=== PATIENT | male | born 1995 | race Caucasian/White ===

== ENCOUNTER 2018-08-08 01:40 | Emergency (ER) | payer OTHER, BC ==
[2018-08-08] MEDS ORDERED: Sodium Chloride 0.9% 10 ML Syringe FLUSH PRN (02:10)
[2018-08-08] MEDS ORDERED: Ondansetron 4 MG/2 ML SDV IVPUSH ONE (02:11)
--- NOTE | 2018-08-08 02:15 | EDM.PDOC ---
ED HPI GENERAL MEDICAL PROBLEM - General Chief Complaint: Diabetic Complaint Stated Complaint: VOMITING Time Seen by Provider: 08/08/18 02:00 Source of Information: Reports: Patient, Family, Old Records History Limitations: Reports: No Limitations - History of Present Illness INITIAL COMMENTS - FREE TEXT/NARRATIVE: Roldan comes into [facility] ED with nausea since dinnertime, and subsequent vomiting since midnight every 10-15 minutes. He is a Type I DM with insulin pump, BSs running in the 80s-90s. He golfed today, and believes he may not have had enough fluids consumed. There is no headache, lt headiness, abdominal pain or back pain. He has tried no meds. Middle Abdomen Pain Score (Numeric/FACES): 5 - Related Data Allergies Allergy/AdvReac Type Severity Reaction Status Date / Time No Known Allergies Allergy Verified 08/08/18 01:52 Home Meds: Home Meds Escitalopram [Lexapro] 10 mg PO DAILY 11/30/17 [History] Insulin Lispro [HumaLOG] 1 unit SQ ACBED 11/30/17 [History] traZODone 50 mg PO BEDTIME PRN 11/30/17 [History] Past Medical History Psychiatric History: Reports: Anxiety, Depression Endocrine/Metabolic History: Reports: Diabetes, Type I Social & Family History - Family History Family Medical History: Noncontributory - Caffeine Use Caffeine Use: Reports: Soda ED ROS GENERAL - Review of Systems Review Of Systems: ROS reveals no pertinent complaints other than HPI. ED EXAM, GENERAL - Physical Exam Exam: See Below Exam Limited By: No Limitations General Appearance: Alert, WD/WN, Moderate Distress Eye Exam: Bilateral Eye: EOMI, Normal Inspection, PERRL Ears: Normal External Exam Nose: Normal Inspection Throat/Mouth: Normal Inspection, Normal Lips, Normal Teeth, Normal Gums, Normal Oropharynx, Normal Voice, No Airway Compromise Head: Normocephalic Neck: Normal Inspection, Supple, Non-Tender Respiratory/Chest: Lungs Clear, Normal Breath Sounds Cardiovascular: Regular Rate, Rhythm, No Murmur GI/Abdominal: Normal Bowel Sounds, Soft, Non-Tender, No Organomegaly, No Distention, No Mass (Male) Exam: Deferred Rectal (Males) Exam: Deferred Back Exam: Normal Inspection, Full Range of Motion Extremities: Normal Inspection Neurological: Alert, Oriented, CN II-XII Intact, Normal Cognition, Normal Gait, No Motor/Sensory Deficits Psychiatric: Normal Affect, Normal Mood Skin Exam: Warm, Dry, Intact, Normal Color, No Rash Lymphatic: No Adenopathy Course - Vital Signs Text/Narrative:: Following assessment, I started an IV in RUE, and administered 2L NS and 2L D5LR pending results of lab work, in addition to Zofran 8mg IV and Reglan 10 mg IV for nausea. There was 2 additional emesis during ED visit, and diarrhea x 1. He subsequently voided after 3 hrs, noting ketones small. Last Recorded V/S: Last Vital Signs Temp 36.8 C 08/08/18 01:40 Pulse 96 08/08/18 01:40 Resp 17 08/08/18 01:40 BP 118/81 08/08/18 01:40 Pulse Ox 100 08/08/18 01:40 - Orders/Labs/Meds Orders: Active Orders 24 hr Category Date Time Status Dextrose 5%-Lactated Ringers 1,000 ml Med 08/08/18 04:45 Active IV ASDIRECTED Dextrose 5%-Lactated Ringers 1,000 ml Med 08/08/18 06:15 Active IV ASDIRECTED Sodium Chloride 0.9% [Normal Saline] 2,000 ml Med 08/08/18 02:15 Active IV ASDIRECTED Sodium Chloride 0.9% [Saline Flush] Med 08/08/18 02:10 Active 10 ml FLUSH ASDIRECTED PRN Peripheral IV Insertion Adult [OM.PC] Routine Oth 08/08/18 02:10 Ordered Medication Orders Sodium Chloride (Normal Saline) 2,000 mls @ 999 mls/hr IV ASDIRECTED MIKE Last Admin: 08/08/18 03:30 Dose: 999 mls/hr Infusion: 08/08/18 03:30 Dose: 999 mls/hr Admin: 08/08/18 02:27 Dose: 999 mls/hr Dextrose/Lactated Ringer's (Dextrose 5%-Lactated Ringers) 1,000 mls @ 999 mls/ hr IV ASDIRECTED MIKE Last Admin: 08/08/18 04:41 Dose: 999 mls/hr Dextrose/Lactated Ringer's (Dextrose 5%-Lactated Ringers) 1,000 mls @ 999 mls/ hr IV ASDIRECTED MIKE Last Admin: 08/08/18 06:10 Dose: 999 mls/hr Sodium Chloride (Saline Flush) 10 ml FLUSH ASDIRECTED PRN PRN Reason: Keep Vein Open Last Admin: 08/08/18 02:27 Dose: 10 ml Labs: Laboratory Tests 08/08/18 08/08/18 08/08/18 Range/Units 02:15 02:15 05:45 WBC 11.7 (4.5-12.0) X10-3/uL RBC 5.09 (4.30-5.75) x10(6)uL Hgb 15.1 (13.5-17.8) g/dL Hct 43.6 (30.0-51.3) % MCV 85.7 (80-96) fL MCH 29.7 (27.7-33.6) pg MCHC 34.6 (32.2-35.4) g/dL RDW 12.2 (11.5-15.5) % Plt Count 218 (125-369) X10(3)uL MPV 9.3 (7.4-10.4) fL Neut % (Auto) 88.3 H (46-82) % Lymph % (Auto) 4.9 L (13-37) % [place] % (Auto) 5.3 (4-12) % Eos % (Auto) 0 L (1.0-5.0) % Baso % (Auto) 1 (0-2) % Neut # (Auto) 10.3 H (1.6-8.3) # Lymph # (Auto) 0.6 (0.6-5.0) # [place] # (Auto) 0.6 (0.0-1.3) # Eos # (Auto) 0.0 (0.0-0.8) # Baso # (Auto) 0.2 (0.0-0.2) # Sodium 143 D (135-145) mmol/L Potassium 4.1 (3.5-5.3) mmol/L Chloride 105 D (100-110) mmol/L Carbon Dioxide 27 (21-32) mmol/L BUN 19 H (7-18) mg/dL Creatinine 1.3 (0.70-1.30) mg/dL Est Cr Clr Drug Dosing 96.17 mL/min Estimated GFR (MDRD) > 60 (>60) BUN/Creatinine Ratio 14.6 (9-20) Glucose 102 D (80-116) mg/dL Calcium 9.4 (8.6-10.2) mg/dL Urine Color Yellow (YELLOW) Urine Appearance Clear (CLEAR) Urine pH 5.0 (5.0-6.5) Ur Specific [place] 1.015 (1.010-1.025) Urine Protein Negative (NEGATIVE) mg/dL Urine Glucose (UA) >1000 H (NORMAL) mg/dL Urine Ketones 50 H (NEGATIVE) mg/dL Urine Occult Blood Negative (NEGATIVE) Urine Nitrite Negative (NEGATIVE) Urine Bilirubin Negative (NEGATIVE) Urine Urobilinogen Normal (NEGATIVE) mg/dL Ur Leukocyte Esterase Negative (NEGATIVE) Urine RBC Not seen (0-5) Urine WBC 0-5 (0-5) Ur Squamous Epith Cells Rare (NS,R,O) Urine Bacteria Rare H (NS) Urine Mucus Moderate H (NS) Meds: Medications Generic Name Dose Route Start Last Admin Trade Name Freq PRN Reason Stop Dose Admin Sodium Chloride 2,000 mls @ 999 mls/hr 08/08/18 02:15 08/08/18 03:30 Normal Saline IV 999 mls/hr ASDIRECTED MIKE Administration Dextrose/Lactated Ringer's 1,000 mls @ 999 mls/hr 08/08/18 04:45 08/08/18 04: 41 Dextrose 5%-Lactated Ringers IV 999 mls/hr ASDIRECTED MIKE Administration Dextrose/Lactated Ringer's 1,000 mls @ 999 mls/hr 08/08/18 06:15 08/08/18 06: 10 Dextrose 5%-Lactated Ringers IV 999 mls/hr ASDIRECTED MIKE Administration Sodium Chloride 10 ml 08/08/18 02:10 08/08/18 02:27 Saline Flush FLUSH 10 ml ASDIRECTED PRN Administration Keep Vein Open Discontinued Medications Generic Name Dose Route Start Last Admin Trade Name Freq PRN Reason Stop Dose Admin Metoclopramide HCl 10 mg 08/08/18 06:31 08/08/18 06:34 Reglan IVPUSH 08/08/18 06:32 10 mg ONETIME ONE Administration Ondansetron HCl 8 mg 08/08/18 02:11 08/08/18 02:27 Zofran IVPUSH 08/08/18 02:12 8 mg ONETIME ONE Administration Departure - Departure Time of Disposition: 06:55 Disposition: Home, Self-Care 01 Condition: Good Clinical Impression: Gastroenteritis - Discharge Information *PRESCRIPTION DRUG MONITORING PROGRAM REVIEWED*: Not Applicable *COPY OF PRESCRIPTION DRUG MONITORING REPORT IN PATIENT VINICIO: Not Applicable Referrals: Kristine Murdock, [employer]INEER [Primary Care Provider] - Forms: ED Department Discharge - Problem List & Annotations (1) Gastroenteritis SNOMED Code(s): 08556402 Code(s): K52.9 - NONINFECTIVE GASTROENTERITIS AND COLITIS, UNSPECIFIED Status: Acute Current Visit: Yes Annotation/Comment:: Gastroenteritis is suspected. I suggested hydration, rest, and diet as tolerated. - Problem List Review Problem List Initiated/Reviewed/Updated: Yes - My Orders Last 24 Hours: My Active Orders 08/08/18 02:10 Sodium Chloride 0.9% [Saline Flush] 10 ml FLUSH ASDIRECTED PRN Peripheral IV Insertion Adult [OM.PC] Routine 08/08/18 02:15 Sodium Chloride 0.9% [Normal Saline] 2,000 ml IV ASDIRECTED 08/08/18 04:45 Dextrose 5%-Lactated Ringers 1,000 ml IV ASDIRECTED 08/08/18 06:15 Dextrose 5%-Lactated Ringers 1,000 ml IV ASDIRECTED - Assessment/Plan Last 24 Hours: My Active Orders 08/08/18 02:10 Sodium Chloride 0.9% [Saline Flush] 10 ml FLUSH ASDIRECTED PRN Peripheral IV Insertion Adult [OM.PC] Routine 08/08/18 02:15 Sodium Chloride 0.9% [Normal Saline] 2,000 ml IV ASDIRECTED 08/08/18 04:45 Dextrose 5%-Lactated Ringers 1,000 ml IV ASDIRECTED 08/08/18 06:15 Dextrose 5%-Lactated Ringers 1,000 ml IV ASDIRECTED Plan: Follow up with PCP if needed.
[2018-08-08] MEDS: Sodium Chloride 0.9% 2,000 ML IV SCH ×2 (02:27→03:30)
[2018-08-08] MEDS ORDERED: Dextrose 5%-Lactated Ringers 1,000 ML IV SCH ×2 (04:45→06:15)
[2018-08-08] MEDS ORDERED: Metoclopramide 10 MG/2 ML SDV IVPUSH ONE (06:31)
== END 2018-08-08 07:07 | disposition home or self-care (01) ==
LOC: FB.ED 01:40
DX: K52.9 Noninfective gastroenteritis and colitis, unspecified (principal); F41.9 Anxiety disorder, unspecified; F32.9 Major depressive disorder, single episode, unspecified; E10.9 Type 1 diabetes mellitus without complications; Z79.4 Long term (current) use of insulin; Z79.899 Other long term (current) drug therapy
CPT/HCPCS: 36415; 80048; 81001; 82962; 85025; 96361; 96374; 96375; 99284; J2405; J2765; J7030; J7042